=== PATIENT | female | born 1955 | race Hispanic/Latino ===

== ENCOUNTER → 2024-04-19 | Outpatient (CLI) | payer OTHER ==
--- NOTE | 2024-04-19 15:34 | HMCIMG ---
CHEST 2VWS REASON: CHRONIC COUGH COMPARISON: None FINDINGS: Two views of the chest were obtained. Lungs are clear. Heart size is normal. There is no pulmonary vascular congestion. Mediastinum and bony thorax appear unremarkable. IMPRESSION: Normal two view chest x-ray.
== END | disposition home or self-care (01) ==
LOC: RAH 14:40
PROVIDERS: ATTEND Internal Medicine
DX: R05.3 Chronic cough (principal)
CPT/HCPCS: 71046

== ENCOUNTER → 2024-06-10 | Outpatient (CLI) | payer OTHER ==
--- NOTE | 2024-06-10 11:52 | HMCIMG ---
US ARTERIAL BILAT LOW EXT DUPL REASON: other symptoms involving circulatory COMPARISON: None TECHNIQUE: Bilateral extraperitoneal Doppler evaluation was performed with spectral analysis and color flow imaging. FINDINGS: Right leg shows triphasic waveforms common femoral artery through the mid superficial femoral artery. The distal superficial femoral artery is biphasic with mild velocity reduction. Popliteal, posterior tibial, anterior tibial and dorsalis pedis are all biphasic as well. There is some additional velocity reduction at the trifurcation level. Left leg shows triphasic waveforms common femoral artery through the popliteal artery. Posterior tibial, anterior tibial and dorsalis pedis arteries are biphasic with only mild velocity reduction. IMPRESSION: 1. 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 2. Mild arterial inflow occlusion on the left at the trifurcation level.
--- NOTE | 2024-06-10 11:52 | HMCIMG ---
US CAROTID DUPLEX REASON: other symptoms involving circulatory TECHNIQUE: Exam was performed using spectral analysis and color flow imaging. FINDINGS: Color flow Doppler ultrasound shows normal-appearing bifurcations. There is no anatomic evidence of significant focal narrowing. Flow velocities and velocity ratios appear normal throughout. There is antegrade flow in both vertebral arteries. RIGHT CAROTID: CCA: 74 cm/sec ICA: 90 cm/sec Ratio: ICA/CCA: 1.2 ECA: 68 cm/sec Vertebral artery: 52 cm/sec LEFT CAROTID: CCA: 63 cm/sec ICA: 95 cm/sec Ratio: ICA/CCA: 1.5 ECA: 93 cm/sec Vertebral artery: 33 cm/sec IMPRESSION: Normal bilateral carotid Doppler ultrasound.
== END | disposition home or self-care (01) ==
LOC: RAH 10:19
PROVIDERS: ATTEND Internal Medicine
DX: I70.291 Other atherosclerosis of native arteries of extremities, right leg (principal); I70.8 Atherosclerosis of other arteries; R09.89 Other specified symptoms and signs involving the circulatory and respiratory systems
CPT/HCPCS: 93880; 93925

== ENCOUNTER → 2024-07-13 | Outpatient (CLI) | payer OTHER ==
--- NOTE | 2024-07-13 10:27 | HMCIMG ---
CT HEART SAVER PROMOTIONAL HISTORY: Calcium scoring COMPARISON: None TECHNIQUE: Computed tomography of the heart was performed with ECG gating and suspended respiration. Postprocessing was performed on a computer workstation to obtain diastolic phase images, determine calcium score and provide a quantitative assessment of extent of disease. This CT included only the heart. HeartSaver score is 24.5. Please see cardiac calcium score report. The available CT chest images show no acute finding. CT was performed with one or more following dose reduction techniques: automated exposure control, adjustment of the mA and kv according to patient's size, or use of a iterative reconstruction technique.
== END | disposition home or self-care (01) ==
LOC: RAH 09:36
PROVIDERS: ATTEND Internal Medicine
DX: Z13.6 Encounter for screening for cardiovascular disorders (principal)
CPT/HCPCS: 75571